=== PATIENT | female | born 1965 ===

== ENCOUNTER → 2018-06-07 | Outpatient (CLI) | payer BC | END | disposition home or self-care (01) | LOC: LAB SHORT 16:00 → LAB 16:00 | DX: R30.0 Dysuria (principal) | CPT/HCPCS: 87086 ==

== ENCOUNTER → 2019-06-07 | Outpatient (CLI) | payer BC ==
[~2019-06-07] MED LIST: BUPR150ER PO; Cipro500 MG PO; Naproxen500 MG PO; Norco 5-325 Ta1 EACH PO; Zofran Odt4 MG SL
== END ==
LOC: LAB 16:15 → LAB SHORT 16:15
DX: R30.0 Dysuria (principal); M54.9 Dorsalgia, unspecified
CPT/HCPCS: 87077; 87086; 87186